=== PATIENT | male | born 1995 | race African-American/Black ===

== ENCOUNTER 2020-03-22 13:48 | Emergency (ER) | payer MEDICAID ==
[~2020-03-22] VITALS: Ht 180.3 cm; Wt 73.0 kg
[2020-03-22 13:51] VITALS: BP 138/85
[2020-03-22] MEDS ORDERED: CEFTRIAXONE SODIUM 250 MG/VIAL IM ONE (14:30)
[2020-03-22] MEDS ORDERED: AZITHROMYCIN 500 MG TABLET PO ONE (14:30)
[2020-03-22 15:34] LABS: CLARITY URINE CLOUDY (CLEAR); COLOR URINE DARK YELLOW (YELLOW); KETONES URINE 1+ (NEGATIVE); LEUKOCYTE ESTERASE URINE 2+ (NEGATIVE); NITRITE URINE NEGATIVE (NEGATIVE); OCCULT BLOOD URINE NEGATIVE (NEGATIVE); PH URINE 5.5 (4.5-8.0); PROTEIN URINE 1+ (NEGATIVE); SPECIFIC GRAVITY URINE 1.035 (1.005-1.030)
[2020-03-28 04:11] LABS: NEISSERIA GONORRHOEAE NAA Equivocal (Negative)
== END 2020-03-22 15:56 | disposition home or self-care (01) ==
LOC: ER 13:48
DX: N50.812 Left testicular pain (principal); N45.1 Epididymitis; N43.3 Hydrocele, unspecified; K40.90 Unilateral inguinal hernia, without obstruction or gangrene, not specified as recurrent
CPT/HCPCS: 76870; 81003; 87491; 87591; 93976; 96372; 99284; J0696